=== PATIENT | male | born 1970 | race Caucasian/White ===

== ENCOUNTER → 2021-09-28 | Outpatient (CLI) | payer OTHER ==
--- NOTE | 2021-09-28 09:01 | MR ---
EXAMINATION TYPE: MR brain wo con DATE OF EXAM: 09/28/2021 COMPARISON: NONE HISTORY: other visual disturbances TECHNIQUE: Multiplanar, multisequence imaging of the brain and brainstem is performed without IV cont rast. FINDINGS: Diffusion weighted images demonstrate no evidence of a recent infarct or other diffusion abnormality. There is no worrisome extra-axial fluid collection. Ventricular system and cisternal spaces are ken l in size and appearance for patient's age. Occasional focus of T2 hyperintensity is seen throughout the white matter bilaterally. Approximately 4-8 scattered lesions are seen. For reference is a 5 mm p osterior left frontal lesion axial image 22. Lesions are nonspecific in appearance and distribution. Midline structures demonstrate normal morphology. The craniocervical junction appears within normal limits. Normal vascular flow voids are present. Moderate mucosal thickening involving the ethmoid sin uses bilaterally greatest anteriorly. Mild mucosal thickening involving bilateral frontal sinuses. IMPRESSION: Mild nonspecific white matter changes. Chronic paranasal sinus disease as detailed above.
== END | disposition home or self-care (01) ==
LOC: RADMRIMAIN 07:25
PROVIDERS: ATTEND Family Medicine
DX: J34.9 Unspecified disorder of nose and nasal sinuses (principal); H53.8 Other visual disturbances
CPT/HCPCS: 70551

== ENCOUNTER → 2022-06-02 | Outpatient (CLI) | payer OTHER ==
--- NOTE | 2022-06-02 17:28 | CA ---
Transthoracic Echo Report Name: Carlos Mcallister Age: 52 Gender: M : 1970 Exam Date: 06/02/2022 11:28 Exam Location: [place] [facility] Ht (in): 68 Wt (lb): 190 Ordering Physician: Ebonie Fan DO Attending/Referring Phys: Ebonie Fan DO Usability Engineer Torito Lawson [facility] Procedure CPT: Indications: R07.89 other chest pain Cardiac Hx: Heavy smoker Technical Quality: Fair Contrast 1: Total Dose (mL): Contrast 2: Total Dose (mL): MEASUREMENTS (Male / Female) Normal Values 2D ECHO LV Diastolic Diameter PLAX 3.6 cm 4.2 - 5.9 / 3.9 - 5.3 cm LV Systolic Diameter PLAX 2.4 cm LV Fractional Shortening PLAX 33.6 % IVS Diastolic Thickness 1.1 cm 0.6 - 1.0 / 0.6 - 0.9 cm IVS Systolic Thickness 1.2 cm LVPW Diastolic Thickness 1.1 cm 0.6 - 1.0 / 0.6 - 0.9 cm LVPW Systolic Thickness 1.3 cm LV Relative Wall Thickness 0.6 RV Internal Dim ED PLAX 2.8 cm LVOT Diameter 2.5 cm LA Systolic Diameter LX 3.7 cm 3.0 - 4.0 / 2.7 - 3.8 cm LV Diastolic Volume MOD BP 72.5 cm??? 67 - 155 / 56 - 104 cm??? LV Systolic Volume MOD BP 42.0 cm??? 22 - 58 / 19 - 49 cm??? LV Ejection Fraction MOD BP 42.1 % >= 55 % LV Stroke Volume MOD BP 30.5 cm??? LV Diastolic Volume MOD 4C 60.1 cm??? LV Systolic Volume MOD 4C 32.0 cm??? LV Ejection Fraction MOD 4C 46.7 % LV Stroke Volume MOD 4C 28.1 cm??? LV Diastolic Length 4C 6.8 cm LV Systolic Length 4C 5.9 cm LV Diastolic Volume MOD 2C 86.2 cm??? LV Systolic Volume MOD 2C 53.0 cm??? LV Ejection Fraction MOD 2C 38.5 % LV Stroke Volume MOD 2C 33.2 cm??? LV Diastolic Length 2C 6.9 cm LV Systolic Length 2C 6.2 cm LA Area 4C View 13.5 cm??? <= 20 cm??? LA Volume 35.9 cm??? 18 - 58 / 22 - 52 cm??? M-MODE Aortic Root Diameter MM 3.3 cm LA Systolic Diameter MM 3.4 cm LA Ao Ratio MM 1.0 AV Cusp Separation MM 1.7 cm DOPPLER AV Peak Velocity 92.0 cm/s AV Peak Gradient 3.4 mmHg MV Deceleration [place] 349.5 cm/s??? MV Pressure Half Time 53.6 ms MV Area PHT 4.1 cm??? Mitral E Point Velocity 64.6 cm/s Mitral A Point Velocity 57.8 cm/s Mitral E to A Ratio 1.1 MV Deceleration Time 184.9 ms MV E' Velocity 8.0 cm/s Mitral E to MV E' Ratio 8.0 TR Peak Velocity 136.2 cm/s TR Peak Gradient 7.4 mmHg PV Peak Velocity 86.1 cm/s PV Peak Gradient 3.0 mmHg FINDINGS Left Ventricle Left ventricular ejection fraction is estimated at 50-55grade 1 diastolic dysfunction. %. Right Ventricle Normal right ventricular size and function. Right Atrium Normal right atrial size. Left Atrium Normal left atrial size. Mitral Valve Structurally normal mitral valve. Trace to mild mitral regurgitation. Aortic Valve Trileaflet aortic valve. Tricuspid Valve Trace to mild tricuspid regurgitation. Pulmonic Valve Pulmonic valve not well visualized. Pericardium Minimal pericardial effusion (normal variant). Aorta Normal size aortic root and proximal ascending aorta. CONCLUSIONS Normal LV function Previewed by: Dr. Hakeem Mccormack MD (Electronically Signed) Final Date: 02 June 2022 17:27
== END | disposition home or self-care (01) ==
LOC: RADECHMAIN 11:16
PROVIDERS: ATTEND Family Medicine
DX: R07.89 Other chest pain (principal)
CPT/HCPCS: 93306